=== PATIENT | female | born 1995 | race Caucasian/White ===

== ENCOUNTER 2017-09-25 02:34 | Emergency (ER) | payer MEDICAID, OTHER ==
[2017-09-25 02:34] VITALS: BMI 27.8
[2017-09-25 03:20] LABS: URINE BACTERIA RARE (<OCC); URINE BILIRUBIN NEGATIVE (NEGATIVE); URINE BLOOD NEGATIVE (NEGATIVE); URINE COLOR Colorless (YELLOW); URINE GLUCOSE (UA) NORMAL (Normal); URINE KETONE NEGATIVE (NEGATIVE); URINE LEUKOCYTE ESTERASE NEG Leu/uL (Negative); URINE PROTEIN NEGATIVE (NEGATIVE); URINE UROBILINOGEN NORMAL mg/dL (0.2-1.0)
[2017-09-25 03:50] LABS: BASO % 0.3 % (0.0-2.0); EOS % 0.3 % (0.0-4.0); HEMATOCRIT 42.5 % (34.0-47.0); LYMPH # 4.5 K/uL (1.0-4.3); MEAN CELL VOLUME 91.7 fL (81.0-99.0); MEAN CORPUSCULAR HEMOGLOBIN 30.7 pg (27.0-31.0); MEAN CORPUSCULAR HGB CONC 33.5 g/dL (33.0-37.0); MEAN PLATELET VOLUME 9.2 fL (7.2-11.7); MONO # 0.4 K/uL (0.0-0.8); MONO % 4.4 % (0.0-10.0); NRBC % 0.1 % (0.0-2.0); RED CELL DISTRIBUTION WIDTH 13.5 % (11.5-14.5); WHITE BLOOD COUNT 8.1 K/uL (4.8-10.8)
[2017-09-25 04:00] LABS: ALKALINE PHOSPHATASE 78 U/L (38-126); ALT/SGPT 56 U/L (9-52); AST/SGOT 25 U/L (14-36); BILIRUBIN,TOTAL 0.4 mg/dL (0.2-1.3); BLOOD UREA NITROGEN 7 mg/dL (7-17); CALCIUM 8.6 mg/dl (8.6-10.4); CARBON DIOXIDE 28 mmol/L (22-30); CHLORIDE 110 mmol/L (98-107); GFR AFRICAN-AMERICAN > 60; GLUCOSE,RANDOM 99 mg/dL (65-105); POTASSIUM 4.3 mmol/L (3.6-5.2); SODIUM 150 mmol/L (132-148)
[2017-09-25 04:11] LABS: ALCOHOL SERUM 358 mg/dl (0-10)
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
[2017-09-25] MEDS ORDERED: Sodium Chloride 0.9% 1,000 ML IV ONE (06:20)
[2017-09-25 06:21] VITALS: TEMP 98.9
[2017-09-25 14:11] VITALS: BP 106/64; PULSE 74; RESP 16; O2SAT 97
== END 2017-09-25 14:27 | disposition home or self-care (01) ==
LOC: C.ER 02:34
DX: F10.10 Alcohol abuse, uncomplicated (principal); Y90.8 Blood alcohol level of 240 mg/100 ml or more
CPT/HCPCS: 80053; 80320; 80324; 80345; 80346; 80349; 80353; 80358; 80361; 81001; 82948; 83992; 84703; 85025; 99285; J7040

== ENCOUNTER 2018-10-30 23:56 | Inpatient (IN) | payer MEDICAID ==
[2018-10-31 00:48] VITALS: BMI 29.2
[2018-10-31] MEDS ORDERED: Lactated Ringer's 1,000 ML IV ONE (00:48)
[2018-10-31] MEDS ORDERED: Betamethasone Soluspan 30 mg/5mL Inj Susp IM ONE (00:52)
[2018-10-31] MEDS ORDERED: AMPicillin 1 GM in Sodium Chloride 0.9% 100 ML IVPB SCH (01:00)
[2018-10-31] MEDS ORDERED: Lactated Ringer's 1,000 ML IV SCH (01:00)
[2018-10-31] MEDS ORDERED: Penicillin G Potassium 5 MU in Dextrose 5% In Water 50 ML IV ONE (01:03)
[2018-10-31] MEDS ORDERED: Penicillin G 5 Million Unit Vial IVPB ONE (01:08)
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
[2018-10-31 01:39] LABS: BASO % 0.1 % (0.0-2.0); EOS % 0.2 % (0.0-4.0); LYMPH # 2.3 K/uL (1.0-4.3); LYMPH % 18.7 % (20.0-40.0); MEAN CELL VOLUME 93.4 fL (81.0-99.0); MEAN CORPUSCULAR HEMOGLOBIN 31.5 pg (27.0-31.0); MEAN CORPUSCULAR HGB CONC 33.7 g/dL (33.0-37.0); MONO # 0.8 K/uL (0.0-0.8); MONO % 6.6 % (0.0-10.0); NEUT # 9.3 K/uL (1.8-7.0); NEUT % 74.4 % (50.0-75.0); RBC 3.82 Mil/uL (3.80-5.20); RED CELL DISTRIBUTION WIDTH 13.5 % (11.5-14.5); WHITE BLOOD COUNT 12.5 K/uL (4.8-10.8)
[2018-10-31 01:57] LABS: SQUAMOUS EPITHIAL 12 /hpf (0-5); URINE BILIRUBIN NEGATIVE (NEGATIVE); URINE BLOOD NEGATIVE (NEGATIVE); URINE CLARITY Hazy (Clear); URINE COLOR Amber (YELLOW); URINE GLUCOSE (UA) NORMAL (Normal); URINE LEUKOCYTE ESTERASE TRACE Leu/uL (Negative); URINE PROTEIN 1+ mg/dL (NEGATIVE)
[2018-10-31 02:02] LABS: PROTHROMBIN TIME 10.6 SECONDS (9.7-12.2)
[2018-10-31 02:05] LABS: ALB/GLOB RATIO 1.3 (1.0-2.1); ALT/SGPT 32 U/L (9-52); AST/SGOT 40 U/L (14-36); BLOOD UREA NITROGEN 7 mg/dL (7-17); CALCIUM 9.2 mg/dl (8.6-10.4); GFR NON-AFRICAN AMERICAN > 60; URIC ACID 4.6 mg/dL (2.2-7.5)
[2018-10-31 02:15] LABS: BARBITURATES, UR NEGATIVE (NEGATIVE); BENZODIAZEPINES, UR NEGATIVE (NEGATIVE); OPIATES, UR NEGATIVE (NEGATIVE); PHENCYCLIDINE, UR NEGATIVE (NEGATIVE)
[2018-10-31 02:34] LABS: HEPATITIS B SURFACE AG Negative (NEGATIVE)
[2018-10-31 02:40] LABS: HEPATITIS A IGM NEGATIVE (NEGATIVE); HEPATITIS B CORE AB NEGATIVE (NEGATIVE)
[2018-10-31] MEDS ORDERED: Lidocaine 2% MPF (5 ml) Inj ONE ×2 (02:49→04:56)
[2018-10-31] MEDS ORDERED: Bupivacaine HCl/FentaNYL Cit 100 ML EPI ONE (02:49)
[2018-10-31 02:51] LABS: HEPATITIS C ANTIBODY NEGATIVE (NEGATIVE)
[2018-10-31] MEDS ORDERED: Oxycodone/Acetaminophen 5/325 mg Tab PO PRN (05:08)
[2018-10-31] MEDS ORDERED: Benzocaine/Menthol 20%-0.5% Topical Spray (60 ml) TOP PRN (05:08)
--- NOTE | 2018-10-31 05:08 | OBDS ---
DELIVERY PERSONNEL Delivery Doctor: James Escalante MD Loading Checker: Maryse Raymundo RN/WILMAR MANJARREZ RN Anesthesiologist: DR ACEVEDO MATERNAL INFORMATION Delivery Anesthesia: Epidural Medications in Delivery: PITOCIN 20 UNITS Placenta Cultured: Yes Provider Comments: Uncomplicated vaginal delivery of live male, ANTOLIN, weight 7lb 1oz, 's 9/9; me conium liquor over perineum. Infant's mouth and nose bulb-sucitoned. Cord doubly clamped and cut. Inf ant handed to barrel roller in attendance Spontaneous delivery of placenta - grossly intact; 3 vesel cord Uterine exploration performed - uterus contracted and firm Cervix, vagina, perineum inspected - laceration as above. repaired. Hemostasis assured. Patient tolerated procedure well; bonding with infant. Both in stable condition LABOR SUMMARY EDC: 11/10/2018 00:00 No. Babies in Womb: 1 Attempted: Yes Labor Anesthesia: Epidural LABOR INFORMATION Onset of Labor: 10/30/2018 16:00 Complete Dilatation: 10/31/2018 04:15 Oxytocin: N/A Group B Beta Strep: Not Done Antibiotics # of Doses: 2 Antibiotics Time of Last Dose: 0445 Steroids Given: < 24 Hours before Delivery Reason Steroids Not Administered: Other Other Reason Not Administered: NO CARE MEMBRANES Membranes Rupture Method: Spontaneous Rupture of Membranes: 10/31/2018 04:00 Length of Rupture (hrs): 0.72 Amniotic Fluid Color: Clear Amniotic Fluid Amount: Moderate Amniotic Fluid Odor: Normal STAGES OF LABOR Stage 1 hrs: 12 Stage 1 min: 15 Stage 2 hrs: 0 Stage 2 min: 28 Stage 3 hrs: 0 Stage 3 min: 8 Total Time in Labor hrs: 12 Total Time in Labor min: 51 VAGINAL DELIVERY Episiotomy: None Laceration Extension: First Degree Laceration Type: Perineal Laceration Repair: Yes Laceration Repair Note: 3-0 chromic - routinely Hemostaiss assured Patient tolerated procedure well Initial Vag Sponge Count: 10 Initial Vag Sharps Count: 0 Sponge Count Correct: Yes Sharps Count Correct: Yes Count Comment: Correct BABY A INFORMATION Infant Delivery Date/Time: 10/31/2018 04:43 Method of Delivery: Vaginal Born in Route : No : N/A Forceps: N/A Vacuum Extraction: N/A Shoulder Dystocia : No SHOULDER DYSTOCIA BABY A Delivery Date/Time: 10/31/2018 04:43 PRESENTATION/POSITION BABY A Presentation: Cephalic Cephalic Presentation: Vertex Vertex Position: Left Occipital Anterior Breech Presentation: N/A PLACENTA INFORMATION BABY A Placenta Delivery Time : 10/31/2018 04:51 Placenta Method of Delivery: Spontaneous Placenta Status: Delivered SCORES BABY A Heart Rate 1 min: >100 bpm Resp Effort 1 min: Good Cry Reflex Irritability 1 min: Cough or Sneeze or Pulls Away Muscle Tone 1 min: Active Motion Color 1 min: Body [place], Extremities Blue SCORE 1 MIN: 9 Heart Rate 5 min: >100 bpm Resp Effort 5 min: Good Cry Reflex Irritability 5 min: Cough or Sneeze or Pulls Away Muscle Tone 5 min: Active Motion Color 5 min: Body [place], Extremities Blue SCORE 5 MIN: 9 INFANT INFORMATION BABY A Gestational Age at Delivery: 38.4 Gestational Status: Term Outcome : Liveborn Condition : Stable Infant Sex: Male IDENTIFICATION/MEDS BABY A ID Band Number: [id number] ID Band Location: Left Leg; Left Arm Sensor Applied: Yes Sensor Number: [id number] Sensor Location : Cord Clamp Vitamin K Given : Aquamephyton 1 mg IM; Left Thigh Erythromycin Given: Given Both Eyes WEIGHT/LENGTH BABY A Birthweight (gms): 3210 Weight (lb): 7 Infant Weight (oz): 1 Infant Length Inches: 19.75 Length cms: 50.2 CORD INFORMATION BABY A No. Cord Vessels: 3 Nuchal Cord : N/A Cord Blood Taken: Yes Infant Suction: Mouth; Nose ASSESSMENT BABY A Infant Complications: None Physical Findings at Delivery: Within Normal Limits Respirations: Appears Normal Stationary Plant Operators/ALS Called : No Care By: DR MARTÍNEZ Transferred To: Remains with Mother
[2018-10-31] MEDS ORDERED: Penicillin G Potassium 2.5 MU in Dextrose 5% In Water 50 ML IV SCH (05:15)
[2018-10-31] MEDS: Multiple Vitamins Tab PO SCH (11:00)
[2018-10-31 17:33] LABS: RAPID PLASMA REAGIN NONREACTIVE (NONREACTIVE)
[2018-11-01 07:26] LABS: BASO % 0.2 % (0.0-2.0); EOS % 0.1 % (0.0-4.0); LYMPH # 3.3 K/uL (1.0-4.3); LYMPH % 16.2 % (20.0-40.0); MEAN CORPUSCULAR HEMOGLOBIN 31.9 pg (27.0-31.0); MEAN CORPUSCULAR HGB CONC 33.5 g/dL (33.0-37.0); MEAN PLATELET VOLUME 10.4 fL (7.2-11.7); MONO # 0.8 K/uL (0.0-0.8); MONO % 3.7 % (0.0-10.0); NEUT # 16.5 K/uL (1.8-7.0); NEUT % 79.8 % (50.0-75.0); NRBC % 0.1 % (0.0-2.0); RBC 3.44 Mil/uL (3.80-5.20); WHITE BLOOD COUNT 20.6 K/uL (4.8-10.8)
[2018-11-01 07:39] LABS: ALB/GLOB RATIO 1.3 (1.0-2.1); ALBUMIN 3.6 g/dL (3.5-5.0); ALT/SGPT 25 U/L (9-52); AST/SGOT 23 U/L (14-36); BLOOD UREA NITROGEN 13 mg/dL (7-17); CALCIUM 8.9 mg/dl (8.6-10.4); GFR NON-AFRICAN AMERICAN > 60
--- NOTE | 2018-11-01 08:31 | OBPPN ---
Datetime: 11/01/2018 08:10 PP Pain Prov: Within normal limits PP Nausea Prov: Denies PP Flatus Prov: Yes PP BM Prov: No PP Heart Prov: Normal PP Lungs Prov: Normal PP Abdomen/Uterus Prov: Normal PP Extremities Prov: Normal PP C/S Incision Prov: Normal PP Comments Phys Exam Prov: VSS PE: Gen: in no acute distress Heart: RRR, no murmurs auscultated Lungs: lungs CTA b/l anteriorly and posteriorly, no W/R/R Abd: soft, +BS, nontender; fundus 2.5 finger breadths. Ext: no edema, no calf tenderness PP Impression Prov: Normal progression PP Plan Prov: Continue present management PP Progress Note Prov: Patient was seen and examined at bedside in no acute distress. Patient report s having mild pain, but otherwise has no complaints and says shes feeling well. She is passing flatus , has not had a BM, and denies chest pain, dyspnea, abdominal pain, fevers. Patient says she is breas t feeding and using the bottle. Patient is ambulating. Plan: 22 year old s/p , PPD#1 1. Continue current management 2. Continue motrin prn for mild pain 3. Continue colace for constipation 4. Continue multivitamins vitamins 5. Continue breast feeding and ambulation Sugey Choudhury, PGY2 Vital Signs Provider PP: Reviewed; Within Normal Limits
--- NOTE | 2018-11-01 09:33 | PCM.PSYCH ---
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 Pt states her delivery went well and is happy to see her . Pt was evaluated and examined at bedside. Pt is in no acute distress, but appears tired and exhausted. Pt states she has a history of depression, but is feeling good now. Pt states she had seen a psychiatrist 7 months ago for discussion of her recently for she did not want to have the baby then. Pt has a history of suicidal ideations with no plan. Pt reports drinking alcohol throughout her , with her last drink being 1 month ago. Pt drinks 5, 12 oz beers usually, with the most being 8-9 beers. Pt started drinking at the age of 16. Pt admits to smoking cigarettes in the past, but states she stopped smoking 2-3 months ago. Pt used to smoke 3-4 cigarettes daily, since the age of 18. Pt appears tired and exhausted. Pt reports that she is happy for her and her mood has improved significantly since the delivery. Pt currently denies suicidal or homicidal ideations, visual or auditory hallucinations, or paranoia. Past Psych Hx: depression, anxiety PMH: denies PSH: denies Current Medications: Active Medications Generic Name Dose Route Start Last Admin Trade Name Freq PRN Reason Stop Dose Admin Benzocaine/Menthol 0 ml 10/31/18 05:08 10/31/18 10:57 Dermoplast 20%-0.5% TOP 1 ml Q6 PRN Administration Perineal Discomfort Docusate Sodium 100 mg 10/31/18 10:00 10/31/18 18:40 Colace PO 100 mg BID TRAVON Administration Lactated Ringer's 1,000 mls @ 125 mls/hr 10/31/18 01:00 Lactated Ringer's IV .Q8H TRAVON Ibuprofen 600 mg 10/31/18 05:08 11/01/18 04:15 Motrin Tab PO 600 mg Q6 PRN Administration Pain, Mild (1-3) Multivitamins 1 tab 10/31/18 10:00 10/31/18 11:00 Hexavitamin PO 1 tab DAILY TRAVON Administration Oxycodone/Acetaminophen 1 tab 10/31/18 05:08 Percocet 5/325 Mg Tab PO 11/03/18 05:09 Q4H PRN Pain, moderate (4-7) Past Psychiatric History - Past Psychiatric History Previous Treatment History: Inpatient Pertinent Medical Hx (Current Medical&Sleep Prob, Allergies): Allergies Allergy/AdvReac Type Severity Reaction Status Date / Time No Known Allergies Allergy Verified 09/25/17 03:10 No Known Home Med 09/25/17 Review of Systems - Review of Systems All systems: reviewed and no additional remarkable complaints except - Psychiatric Psychiatric: Anxiety, Irritability, Suicidal Ideation Mental Status Examination - Personal Presentation Personal Presentation: Looks stated age - Affect Affect: Constricted - Motor Activity Motor Activity: Calm - Reliability in Providing Information Reliability in Providing Information: Fair, Poor, due to alteration in thoughts, Poor, due to altered mood - Speech Speech: Organized - Mood Mood: Depressed, Anxious - Formal Thought Process Formal Thought Process: No Impairment - Obsessions/Compulsions Obsessions: No Compulsions: No - Cognitive Functions Orientation: Person, Place, Situation, Time Sensorium: Alert Attention/Concentration: Attentive Abstract Thinking: [place] Estimate of Intelligence: Below average Judgement: Imparied, as evidence by: Poor judgement - Risk Risk: Diminished functioning - Strength & Assets Inventory Strength & Assets Inventory: Family support - Limitations Limitations: Living alone DSM 5 DX - DSM 5 DSM 5 Diagnosis: Major depressive disorder recurrent severe without psychotic features - Recommended/Plan of Treatment Treatment Recommendations and Plan of Treatment: Major depressive disorder recurrent severe without psychotic features CBT Psychoeducation of his supportive therapy and group therapy Hydroxyzine 25 mg p.o. every 6 hours as needed anxiety Patient psychiatrically stable and cleared for discharge
[2018-11-01] MEDS: Multiple Vitamins Tab PO SCH (10:28)
[2018-11-02] MEDS ORDERED: Measles, Mumps, and Rubella 0.5 ML VIAL SC ONE (08:30)
[2018-11-02 09:31] VITALS: BP 114/65; PULSE 96; RESP 18; TEMP 97.7; O2SAT 99
[2018-11-02] MEDS: Multiple Vitamins Tab PO SCH (10:03)
[2018-11-02] MEDS ORDERED: Influenza Vaccine 60 mcg/0.5 mL SYR (4YR UP) IM ONE (10:04)
--- NOTE | 2018-11-02 10:21 | OBPPN ---
Datetime: 11/02/2018 07:17 PP Pain Prov: Within normal limits PP Nausea Prov: Denies PP Flatus Prov: Yes PP BM Prov: No PP Breasts Prov: Normal PP Heart Prov: Normal PP Lungs Prov: Normal PP Abdomen/Uterus Prov: Normal PP Lochia Prov: Normal PP Vulva/Perineum Prov: Normal PP Extremities Prov: Normal PP C/S Incision Prov: Not Applicable PP Comments Phys Exam Prov: VSS PE: Gen: in no acute distress Heart: RRR, no murmurs auscultated Lungs: CTA b/l anteriorly and posteriorly Abd: soft, non tender, +BS, 1 fingerbreadth above umbilicus Ext: no edmea, no tenderness w/palpation PP Impression Prov: Normal progression PP Plan Prov: Continue present management; Discharge PP Progress Note Prov: Patient was seen and examined at bedside. Patient is no acute distress. Patighada nt reports mild vaginal pain, but the spray has been helping her. Patient denies chest pain, dyspnea, abdominal pain, nausea, vomting, fevers. She is passing flatus, but has not had a BM as of yet. She is and bottle feeding wihout difficulty. The patient is ambulating and tolerating her d iet. Plan: 1. Continue Motrin PRN for pain 2. Continue Colace 100mg PO BID for constipation 3. Continue vitamins 4. MMR vaccine was ordered (rubella was equivical) 5. Per psychiatrist: continue Hydroxyzine 25mg PO Q6h prn for anxiety and follow up in 1 week at [facility]- outpatient Psychiatry (please call [phone] to make an appointment). 6. Please follow up with your OB in 6 weeks for vision and make an appointment with the baby's surgical supplies sterilizer within 1 week. 6. Pelvic rest for 6 weeks (no sex, no tampons, and no douching) 7. Continue and ambulation. Sugey Choudhury, PGY2 Attending Note: Patient seen, evaluated and examined by me with the Resident. I agree with the abo ve as documented. Also awaiting assessment and disposition of by DYFS. H/O prev ETOH abuse, and ETOH use in this . S/P psych eval - stable with diagnosis of major depressive disorder without psychotic features on hydroxyzine, as needed for anxiety. Patient is clinically stable. Vital Signs Provider PP: Reviewed; Within Normal Limits
--- NOTE | 2018-11-02 10:25 | OBDCSUM ---
Datetime: 11/02/2018 08:59 Discharged to, Provider: Home Follow up at, Provider: Disch Instr Activity: Normal activity Disch Instr Diet: Regular Discharge Instructions, Provider: Specific instructions as noted Discharge Diagnosis, Provider: Term Delivered Discharge Time: 11/02/2018 10:30 Follow up in weeks, Provider: 6 weeks Disch Referrals: Parts Inspector Contraception discussed, Prov: No Disch Activity Restrictions: No lifting; Minimize stair-climbing; No sexual activity; Nothing in vag mitzi - [place], tampons, douche Discharge Comment, Provider: F/U outpatient psychiatric center in 1 week (see discharge note) Discharge Diagnosis Prov Other: No care Major depressive disorder without psychotic features Anxiety Alcohol abuse
== END 2018-11-02 15:20 | disposition home or self-care (01) | DRG 560 ==
LOC: C.EROB 23:56 → C.4D 10-31 00:48 → C.4M 10-31 06:26
PROVIDERS: ADMIT Obstetrics & Gynecology; ATTEND Obstetrics & Gynecology
PROC: 10E0XZZ Delivery of Products of Conception, External Approach (ICD-10-PCS; principal; 2018-10-31)
PROC: 0HQ9XZZ Repair Perineum Skin, External Approach (ICD-10-PCS; 2018-10-31)
DX: O77.0 Labor and delivery complicated by meconium in amniotic fluid (principal); O99.344 Other mental disorders complicating childbirth; O99.314 Alcohol use complicating childbirth; O99.334 Smoking (tobacco) complicating childbirth; O70.0 First degree perineal laceration during delivery; F33.2 Major depressive disorder, recurrent severe without psychotic features; F10.10 Alcohol abuse, uncomplicated; F17.211 Nicotine dependence, cigarettes, in remission; Z3A.38 38 weeks gestation of pregnancy; Z37.0 Single live birth